=== PATIENT | female | born 1985 | race Caucasian/White ===

== ENCOUNTER → 2016-09-03 | Outpatient (REF) | payer OTHER ==
[~2016-09-03] MED LIST: FERR325T3 PO; IBUP80TA PO; PERCOCET PO; PRENTAB13 PO; PROA1AER IN
[2016-09-04 12:01] LABS: ALBUMIN 4.5 GM/DL (3.2-5.2); ALKALINE PHOSPHATASE 84 U/L (45-117); ALT/SGPT 25 U/L (12-78); ANION GAP 7 MEQ/L (8-16); AST/SGOT 13 U/L (15-37); BILIRUBIN,TOTAL 0.3 MG/DL (0.2-1.0); BLOOD UREA NITROGEN 9 MG/DL (7-18); CALCIUM LEVEL 9.1 MG/DL (8.5-10.1); CARBON DIOXIDE LEVEL 27 MEQ/L (21-32); CHLORIDE LEVEL 104 MEQ/L (98-107); CHOLESTEROL LEVEL 207 MG/DL (<200); CREATININE FOR GFR 0.63 MG/DL (0.55-1.02); FREE T4 1.27 NG/DL (0.76-1.46); GLOMERULAR FILTRATION RATE > 60.0 (>60); GLUCOSE, FASTING 89 MG/DL (70-105); POTASSIUM SERUM 4.1 MEQ/L (3.5-5.1); SODIUM LEVEL 138 MEQ/L (136-145); TOTAL PROTEIN 7.5 GM/DL (6.4-8.2); TRIGLYCERIDES LEVEL 330 MG/DL (<150)
== END ==
LOC: M SFHCCLAY 14:49
PROVIDERS: ATTEND Family Medicine
DX: R63.5 Abnormal weight gain (principal); Z12.4 Encounter for screening for malignant neoplasm of cervix
CPT/HCPCS: 80053; 80061; 84439; 84443; 87070; 87077; 87186; 87491; 87591; G0123

== ENCOUNTER → 2016-09-17 | Outpatient (REF) | payer OTHER | LOC: M SFHCCLAY 16:47 | PROVIDERS: ATTEND Family Medicine | DX: N30.01 Acute cystitis with hematuria (principal) ==

== ENCOUNTER → 2016-11-12 | Outpatient (REF) | payer OTHER ==
[~2016-11-12] MED LIST changes: -PRENTAB13 PO; +PRENTAB20 PO; -PROA1AER IN; +PROAAER10 IN
[2016-11-13 11:13] LABS: MEAN CORPUSCULAR HGB CONC 33.4 g/dl (32.0-36.5); RED CELL DISTRIBUTION WIDTH 13.9 % (11.5-14.5); WHITE BLOOD COUNT 7.3 K/mm3 (4.0-10.0)
[2016-11-13 11:24] LABS: FERRITIN 7 NG/ML (8-252)
[2016-11-13 11:35] LABS: EOSINOPHILS 1 % (0-5)
== END ==
LOC: M SFHCCLAY 15:37
PROVIDERS: ATTEND Family Medicine
DX: T14.8 Other injury of unspecified body region (principal)

== ENCOUNTER → 2017-06-30 | Outpatient (REF) | payer OTHER, MEDICAID ==
[2017-06-30 15:16] LABS: AMPHETAMINES URINE REFLEX NEGATIVE (NEGATIVE); BARBITURATES URINE REFLEX NEGATIVE (NEGATIVE); BENZODIAZEPINES URINE REFLEX NEGATIVE (NEGATIVE); CANNABINOIDS URINE REFLEX NEGATIVE (NEGATIVE); COCAINE METABOLITE URINE REFLE NEGATIVE (NEGATIVE); METHADONE URINE REFLEX NEGATIVE (NEGATIVE); OPIATES URINE REFLEX NEGATIVE (NEGATIVE); PHENCYCLIDINE URINE REFLEX NEGATIVE (NEGATIVE)
== END ==
LOC: M OUTALCOH 14:00
DX: F41.1 Generalized anxiety disorder (principal); F32.89 Other specified depressive episodes
CPT/HCPCS: 80307

== ENCOUNTER 2017-07-01 10:33 | Day surgery (SDC) | payer OTHER ==
[~2017-07-01 10:33] MED LIST changes: -FERR325T3 PO; -IBUP80TA PO; +LIDOCAINE 2% MDV 20 ML VIAL As Ordered; -PERCOCET PO; -PRENTAB20 PO; -PROAAER10 IN; +PROPOFOL 200 MG/20 ML VIAL As Ordered
[2017-07-01] MEDS: NS 1,000 ML IV (11:00)
== END 2017-07-01 12:15 | disposition home or self-care (01) ==
LOC: M OPP 10:33
DX: R10.13 Epigastric pain (principal); R13.10 Dysphagia, unspecified; K29.70 Gastritis, unspecified, without bleeding; K44.9 Diaphragmatic hernia without obstruction or gangrene; K21.9 Gastro-esophageal reflux disease without esophagitis; R12 Heartburn; E78.00 Pure hypercholesterolemia, unspecified; D64.9 Anemia, unspecified; F41.9 Anxiety disorder, unspecified; F32.9 Major depressive disorder, single episode, unspecified; J45.909 Unspecified asthma, uncomplicated; Z87.440 Personal history of urinary (tract) infections; F17.210 Nicotine dependence, cigarettes, uncomplicated; Z91.040 Latex allergy status; Z79.899 Other long term (current) drug therapy
CPT/HCPCS: 43239

== ENCOUNTER → 2017-08-20 | Outpatient (CLI) | payer OTHER ==
[~2017-08-20] MED LIST changes: +E-Z-GAS II EFFERVESCENT PACKET (SODIUM BICARB./CITRIC ACID/SIMETHICONE) As Ordered; +E-Z-HD 98% w/w 340GM SUSP BTL As Ordered; +E-Z-PAQUE 96% w/w SUSP 176GM BTL As Ordered; -LIDOCAINE 2% MDV 20 ML VIAL As Ordered; -PROPOFOL 200 MG/20 ML VIAL As Ordered
== END ==
LOC: M RAD 10:30
DX: K21.9 Gastro-esophageal reflux disease without esophagitis (principal)
CPT/HCPCS: 74241

== ENCOUNTER → 2018-03-21 | Outpatient (CLI) | payer OTHER ==
[2018-03-21 19:54] LABS: ERYTHROCYTE SEDIMENTATION RATE 16 mm/hr (0-20)
[2018-03-25 14:19] LABS: ANCA-ATYPICAL <1:20 titer (Neg:<1:20); ANTI DOUBLE STRAND-DNA AB <1 IU/mL (0-9); ANTINUCLEAR ANTIBODIES DIRECT Negative (Negative); CHLAMYDIA PNEUMONIAE IgM < 1:10 (< 1:10); CHLAMYDIA PSITTACI IgM < 1:10 (< 1:10); CHLAMYDIA TRACHOMATIS IgM < 1:10 (< 1:10); CYTOPLASMIC NEUTROP AB ANCA-C <1:20 titer (Neg:<1:20); L PNEUMOPHILIA 1-6 IgG <1:128 (<1:128); L PNEUMOPHILIA 1-6 IgM < 1:16 (< 1:16); MYCOPLASMA PNEUMONIAE IgG 1425 U/mL (0-99); MYCOPLASMA PNEUMONIAE IgM <770 U/mL (0-769); PERINUCLEAR AB ANCA-P <1:20 titer (Neg:<1:20); RNP ANTIBODIES <0.2 AI (0.0-0.9); SJOGREN'S ANTI SS-A <0.2 AI (0.0-0.9); SJOGREN'S ANTI SS-B <0.2 AI (0.0-0.9); SMITH ANTIBODIES <0.2 AI (0.0-0.9)
== END ==
LOC: M SMT 15:41
DX: R91.8 Other nonspecific abnormal finding of lung field (principal)
CPT/HCPCS: 86255

== ENCOUNTER → 2021-07-23 | Outpatient (CLI) | payer MEDICAID, OTHER ==
[~2021-07-23] MED LIST changes: +BUSP10TA PO; -E-Z-GAS II EFFERVESCENT PACKET (SODIUM BICARB./CITRIC ACID/SIMETHICONE) As Ordered; -E-Z-HD 98% w/w 340GM SUSP BTL As Ordered; -E-Z-PAQUE 96% w/w SUSP 176GM BTL As Ordered; +FERR325T3 PO; +IBUP80TA PO; +PERCOCET PO; +PRENTAB20 PO; +PROAAER10 IN; +PROT1TAB2 PO; +PROZ20CA11 PO; +XANA0.5T PO
[2021-07-23 14:10] LABS: HEMATOCRIT 40.1 % (36.0-47.0); HEMOGLOBIN 13.2 g/dl (12.0-15.5); MEAN CORPUSCULAR HEMOGLOBIN 29.4 pg (27.0-33.0); MEAN CORPUSCULAR HGB CONC 32.9 g/dl (32.0-36.5); MEAN CORPUSCULAR VOLUME 89.3 fl (80.0-96.0); PLATELET COUNT, AUTOMATED 203 10^3/uL (150-450); RED BLOOD COUNT 4.49 10^6/uL (4.00-5.40); WHITE BLOOD COUNT 6.1 10^3/uL (4.0-10.0)
[2021-07-23 14:38] LABS: HCG, SERUM QUALITATIVE NEGATIVE (NEGATIVE)
[2021-07-23 14:53] LABS: ALBUMIN 3.7 GM/DL (3.2-5.2); ALT/SGPT 36 U/L (12-78); BILIRUBIN,TOTAL 0.4 MG/DL (0.2-1.0); BLOOD UREA NITROGEN 14 MG/DL (7-18); CALCIUM LEVEL 9.2 MG/DL (8.5-10.1); CARBON DIOXIDE LEVEL 29 MEQ/L (21-32); CHLORIDE LEVEL 105 MEQ/L (98-107); CREATININE FOR GFR 0.58 MG/DL (0.55-1.30); GLOMERULAR FILTRATION RATE > 60.0 (>60); GLUCOSE, FASTING 91 MG/DL (70-100); SODIUM LEVEL 137 MEQ/L (136-145)
[2021-07-23 15:38] LABS: GC DNA AMPLIFICATION NEGATIVE (NEGATIVE)
[2021-07-23 18:11] LABS: HEPATITIS B SURFACE ANTIGEN NEGATIVE (NEGATIVE); HEPATITIS C VIRUS ABY INDEX 0.2 INDEX (<0.8); HIV 1&2 SCREEN CENTAUR NEGATIVE (NEGATIVE)
== END ==
LOC: M LAB 11:49
PROVIDERS: ATTEND Family Medicine
DX: F11.21 Opioid dependence, in remission (principal)